=== PATIENT | female | born 1930 | race Caucasian/White ===

== ENCOUNTER 2018-04-27 01:23 | Emergency (ER) | payer MEDICARE ==
--- NOTE | 2018-04-27 01:38 | ERPHSYRPT ---
- History of Present Illness Time Seen by Provider: 04/27/18 01:35 Source: EMS, residential records Exam Limitations: clinical condition Physician History: 87 y/o white female residential resident with h/o dementia presents via ems after pt was seen in bed then when technicians turned back pt on the floor. this fall occurred at 2130. pt remained at residential facilitiy with neuro checks. pts last neuro check revealed pt to have altered mental status and have a brown substance in her mouth. pt not interacting with ems upon arrival. 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 occas moves right side but not always. pt is DNR status. clarification from residential rn at residential states pt only gives short answers intermittently to basic questions. Timing/Duration: today Severity: moderate Character of Deficits: other (gave rn name but only intermittently answers questions) Deficits: bed-ridden, cannot stand, cannot walk (chronic post cva) Baseline/Normal Cognition: poor alertness Current Cognition: poor alertness Baseline Gait: unable to walk Associated Symptoms: other (pt not interactive) Allergies/Adverse Reactions: No Known Drug Allergies Allergy (Unverified 04/27/18 02:01) Home Medications: Amlodipine Besylate 5 mg [Norvasc 5 mg] 5 mg PO DAILY 04/27/18 [History] Aspirin 81 gm Chew [Baby Aspirin 81 mg Chew] 81 mg PO DAILY 04/27/18 [ History] Atorvastatin Calcium [Lipitor 40Mg] 40 mg PO DAILY 04/27/18 [History] Digoxin 1 tab PO DAILY 04/27/18 [History] Ibuprofen 400 mg PO Q6H PRN 04/27/18 [History] Levothyroxine Sodium 100 mcg PO DAILY 04/27/18 [History] Lisinopril 10 mg [Zestril 10 MG] 10 mg PO BID 04/27/18 [History] Memantine HCl/Donepezil HCl [Namzaric 28 mg-10 mg Capsule] 1 cap PO HS 04/27/18 [History] Metoprolol Tartrate 50 mg [Lopressor 50 MG] 50 mg PO BID 04/27/18 [History ] Sertraline HCl 1 tab PO DAILY 04/27/18 [History] - Review of Systems Constitutional: No Symptoms, No Fever, No Chills Eyes: No Symptoms, No Eye Pain Ears, Nose, & Throat: No Symptoms, No Ear Pain Respiratory: No Symptoms, No Cough, No Dyspnea, No Stridor, No Wheezing Cardiac: No Symptoms, No Chest Pain, No Palpitations, No Syncope Abdominal/Gastrointestinal: No Symptoms, No Abdominal Pain, No Nausea, No Vomiting, No Diarrhea Genitourinary Symptoms: No Symptoms, No Dysuria, No Frequency, No Hematuria Musculoskeletal: No Symptoms, No Back Pain, No Neck Pain Skin: No Symptoms, No Cellulitis Neurological: No Symptoms Psychological: No Symptoms Endocrine: No Symptoms Hematologic/Lymphatic: No Symptoms Immunological/Allergic: No Symptoms All Other Systems: Reviewed and Negative - Past Medical History Pertinent Past Medical History: Yes Neurological History: Dementia, Stroke ENT History: No Pertinent History Cardiac History: No Pertinent History Respiratory History: No Pertinent History Endocrine Medical History: No Pertinent History Musculoskeletal History: No Pertinent History GI Medical History: No Pertinent History History: No Pertinent History Psycho-Social History: No Pertinent History Female Reproductive Disorders: No Pertinent History - Nursing Vital Signs Nursing Vital Signs: Initial Vital Signs Temperature 98.8 F 04/27/18 01:24 Pulse Rate 107 H 04/27/18 01:24 Blood Pressure 147/83 04/27/18 01:24 O2 Sat by Pulse Oximetry 98 04/27/18 01:24 - Darlyn Coma Scale Best Eye Response (Darlyn): (4) open spontaneously Best Verbal Response (Darlyn): (4) confused conversation Best Motor Response (Darlyn): (5) localizes to pain Darlyn Total: 13 - Physical Exam General Appearance: no apparent distress, lethargy Eye Exam: bilateral eye: normal inspection, PERRL, EOMI Ears, Nose, Throat Exam: dry mucous membranes Neck Exam: normal inspection, non-tender, supple Respiratory: normal breath sounds, lungs clear, airway intact, No chest tenderness, No respiratory distress, No accessory muscle use, No rhonchi, No wheezing, No stridor Cardiovascular: regular rate/rhythm, normal heart sounds, normal peripheral pulses Gastrointestinal: soft, normal bowel sounds, No tenderness, No guarding, No rebound Pelvic Exam: not done Rectal Exam: not done Back Exam: normal inspection, No CVA tenderness, No vertebral tenderness Extremity Exam: normal inspection, other (pt does not follow command) Mental Status: lethargy Skin Exam: normal color, warm, dry SpO2 Interpretation: normal SpO2: 98 Oxygen Delivery: Room Air - Course Nursing assessment & vital signs reviewed: Yes Ordered Tests: Active Orders 24 hr Category Date Time Status IV Insertion STAT Care 04/27/18 01:49 Active ANKLE (3 VIEWS) Stat Exams 04/27/18 03:10 Taken CHEST 1 VIEW (PORTABLE) Stat Exams 04/27/18 01:49 Taken HEAD WITHOUT CONTRAST [CT] Stat Exams 04/27/18 01:50 Taken CBC W DIFF Stat Lab 04/27/18 02:05 Completed CMP Stat Lab 04/27/18 02:05 Completed CULTURE,URINE Stat Lab 04/27/18 02:05 Received UA W/ MICROSCOPIC Stat Lab 04/27/18 02:05 Completed Medication Summary Discontinued Medications Generic Name Dose Route Start Last Admin Trade Name Freq PRN Reason Stop Dose Admin Sodium Chloride 500 mls @ 999 mls/hr 04/27/18 01:49 04/27/18 03:12 Sodium Chloride 0.9% 1000 Ml IV 04/27/18 02:19 Infused .Q31M STA Infusion Sodium Chloride Confirm 04/27/18 02:02 Sodium Chloride 0.9% 1000 Ml Administered 04/27/18 02:03 Dose 1,000 mls @ ud .ROUTE .STK-MED ONE Ceftriaxone Sodium/Dextrose 1 g in 50 mls @ 100 mls/hr 04/27/18 03:37 04:01 Rocephin 1 Gm-D5w 50 Ml Bag IV 04/27/18 04:06 Infused STAT STA Infusion Ceftriaxone Sodium/Dextrose Confirm 04/27/18 03:38 Rocephin 1 Gm-D5w 50 Ml Bag Administered 04/27/18 03:39 Dose 1 g in 50 mls @ ud IV .STK-MED ONE Lab/Rad Data: Laboratory Result Diagrams 04/27/18 02:05 04/27/18 02:05 Laboratory Results 04/27/18 04/27/18 04/27/18 Range/Units 02:05 02:05 02:05 WBC 16.7 H (4.0-10.5) K/mm3 RBC 5.46 H (4.1-5.4) M/mm3 Hgb 17.1 H (12.0-16.0) gm/dl Hct 52.7 H (35-47) % MCV 96.5 (78-100) fl MCH 31.3 (26-32) pg MCHC 32.4 (32-36) g/dl RDW 14.1 H (11.5-14.0) % Plt Count 104 L (150-450) K/mm3 MPV 10.8 H (6-9.5) fl Gran % 81.1 H (36.0-66.0) % Eos # (Auto) 0.09 (0-0.5) Absolute Lymphs (auto) 2.02 (1.0-4.6) Absolute Monos (auto) 1.03 (0.0-1.3) Lymphocytes % 12.1 L (24.0-44.0) % Monocytes % 6.2 (0.0-12.0) % Eosinophils % 0.5 (0.00-5.0) % Basophils % 0.1 (0.0-0.4) % Absolute Granulocytes 13.55 H (1.4-6.9) Basophils # 0.02 (0-0.4) Sodium 141 (137-145) mmol/L Potassium 4.4 (3.5-5.1) mmol/L Chloride 108 H (98-107) mmol/L Carbon Dioxide 24 (22-30) mmol/L Anion Gap 14.0 (5-15) MEQ/L BUN 17 (7-17) mg/dL Creatinine 0.60 (0.52-1.04) mg/dL Estimated GFR > 60.0 ML/MIN Glucose 128 H (74-106) mg/dL Calcium 9.7 (8.4-10.2) mg/dL Total Bilirubin 0.90 (0.2-1.3) mg/dL AST 69 H (14-36) U/L ALT 46 H (0-35) U/L Alkaline Phosphatase 113 (38-126) U/L Serum Total Protein 7.5 (6.3-8.2) g/dL Albumin 3.8 (3.5-5.0) g/dL Ur Collection Type UNK Urine Color YELLOW (YELLOW) Urine Appearance HAZY (CLEAR) Urine pH 5.0 (5-6) Ur Specific [place] 1.020 (1.005-1.025) Urine Protein NEGATIVE (Negative) Urine Ketones NEGATIVE (NEGATIVE) Urine Blood LARGE (0-5) Matthew/ul Urine Nitrite NEGATIVE (NEGATIVE) Urine Bilirubin NEGATIVE (NEGATIVE) Urine Urobilinogen NORMAL (0-1) mg/dL Ur Leukocyte Esterase 1+ (NEGATIVE) Urine Microscopic RBC 5-10 (0-2) /HPF Urine Microscopic WBC 15-25 (0-5) /HPF Ur Epithelial Cells RARE (FEW) /HPF Urine Bacteria MANY (NEGATIVE) /HPF Urine Culture Reflexed YES (NO) Urine Glucose NEGATIVE (NEGATIVE) mg/dL Specimen Received 04/27 0200 cxr-? right mid lobe/perihilar infiltrate vs chronic changes. pt rotated and no comparison cxr. xray right ankle-no acute fx or dislocation; chronic changes. [employer] states this is the correct ankle xray ct head-no intracranial abnormalities - Progress Progress: improved Progress Note: 04/27/18 04:03 pt not interactive. did not d/w pt. gagandeep mendoza did inform residential rn of dx and tx plan. - Departure Time of Disposition: 04:32 Departure Disposition: Home (residential) Clinical Impression: UTI (urinary tract infection), Pneumonia Condition: Stable Critical Care Time: No Referrals: ALDO WATERS [Primary Care Provider] - Additional Instructions: give levaquin iv antibiotics as prescribed. pt to be evaluated by physician. same other treatment plan.
[2018-04-27] MEDS ORDERED: Sodium Chloride 0.9% 1000 ML 1,000 ML ONE (02:02)
[2018-04-27 02:14] LABS: BASOPHIL % 0.1 % (0.0-0.4); Basophil (Absolute #) 0.02 (0-0.4); Eosinophil % 0.5 % (0.00-5.0); Eosinophil (Absolute #) 0.09 (0-0.5); Granulocyte Absolute (ANC) 13.55 (1.4-6.9); Granulocytes % 81.1 % (36.0-66.0); Hematocrit 52.7 % (35-47); Hemoglobin 17.1 gm/dl (12.0-16.0); Lymphocyte (Absolute #) 2.02 (1.0-4.6); Lymphocytes % 12.1 % (24.0-44.0); Mean Cell Volume 96.5 fl (78-100); Mean Corpuscular Hemoglobin 31.3 pg (26-32); Mean Corpuscular Hgb Concent. 32.4 g/dl (32-36); Mean Platelet Volume 10.8 fl (6-9.5); Monocyte (Absolute #) 1.03 (0.0-1.3); Monocytes % 6.2 % (0.0-12.0); Platelet Count 104 K/mm3 (150-450); Red Blood Count 5.46 M/mm3 (4.1-5.4); Red Cell Distribution Width 14.1 % (11.5-14.0); White Blood Count 16.7 K/mm3 (4.0-10.5)
[2018-04-27 02:33] LABS: Appearance HAZY (CLEAR); Bilirubin NEGATIVE (NEGATIVE); Blood LARGE Ery/ul (0-5); Glucose NEGATIVE (NEGATIVE); Ketones NEGATIVE (NEGATIVE); Leukocyte Esterase 1+ (NEGATIVE); Nitrite NEGATIVE (NEGATIVE); Protein,Urine Dip NEGATIVE (Negative); Urobilinogen NORMAL mg/dL (0-1)
[2018-04-27 02:34] LABS: ALBUMIN 3.8 g/dL (3.5-5.0); ALKALINE PHOSPHATASE 113 U/L (38-126); BLOOD UREA NITROGEN 17 mg/dL (7-17); Bacteria MANY /HPF (NEGATIVE); CHLORIDE 108 mmol/L (98-107); Calcium 9.7 mg/dL (8.4-10.2); Carbon Dioxide 24 mmol/L (22-30); Epithelial Cells RARE /HPF (FEW); Glucose 128 mg/dL (74-106); Potassium 4.4 mmol/L (3.5-5.1); SGOT/AST 69 U/L (14-36); SGPT/ALT 46 U/L (0-35); SODIUM 141 mmol/L (137-145); Total Protein 7.5 g/dL (6.3-8.2); WBC 15-25 /HPF (0-5)
[2018-04-27] MEDS ORDERED: ROCEPHIN 1 Gm-D5w 50 ml Bag** 1 G/50 ML IVPB IV ONE (03:38)
[2018-04-27] MEDS: ROCEPHIN 1 Gm-D5w 50 ml Bag** 1 G/50 ML IVPB IV STA (03:42)
[2018-04-27 04:03] VITALS: PULSE 97
[2018-04-27 05:03] VITALS: BP 135/90; O2SAT 100
--- NOTE | 2018-04-27 09:17 | XRAY ---
Indication: Pain following fall. Comparison: None 3 views of the right ankle limited due to suboptimal positioning. Ankle mortise grossly intact with medial soft tissue swelling, osteopenia, old distal 1st metatarsal fracture, small posterior heel spur, and degenerative changes of the ankle and midfoot/hindfoot. No other bony, articular, or soft tissue abnormalities.
--- NOTE | 2018-04-27 09:21 | XRAY ---
Indication: Altered mental status. Status post fall. Comparison: None Portable chest is rotated/side bent to the right. Lungs inflated and clear. Heart and mediastinal structures within normal limits. Bony thorax intact with osteopenia and moderate degenerative changes. 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 Impression: Nonacute chest with chronic features.
--- NOTE | 2018-04-27 09:27 | XRAY ---
Indication: Altered mental status. Patient found on floor. Status post CVA. Multiple contiguous axial images obtained through the head without contrast. Comparison: None Age-appropriate global atrophy, moderate periventricular degenerative microvascular ischemia, and moderate-sized old right parietal infarct. There is cortical/subcortical hypoattenuation in the right anterior parietal lobe favoring subacute to chronic infarct. No acute intracranial hemorrhage, hydrocephalus, or mass effect. Moderate right frontal scalp hematoma. Bony calvarium intact with moderate degenerative changes of the atlantoaxial articulation. Moderate mucosal thickening of both ethmoid and both maxillary sinuses with fluid leveling in both maxillary and both sphenoid sinuses. Mastoid air cells are clear. Impression: 1. Nonacute senile brain with remote right cerebral infarcts as detailed. 2. Right frontal scalp hematoma. No underlying fracture. 3. Incidental pansinusitis. Comment: Preliminary interpretation was made by [facility]. No critical discrepancy. CTDI 62.53
== END 2018-04-27 05:27 ==
LOC: ED 01:23
DX: N39.0 Urinary tract infection, site not specified (principal); J18.9 Pneumonia, unspecified organism; I69.354 Hemiplegia and hemiparesis following cerebral infarction affecting left non-dominant side; Z86.73 Personal history of transient ischemic attack (TIA), and cerebral infarction without residual deficits; Z79.82 Long term (current) use of aspirin; Z79.899 Other long term (current) drug therapy; W06.XXXA Fall from bed, initial encounter; Y92.129 Unspecified place in nursing home as the place of occurrence of the external cause
CPT/HCPCS: 36000; 36415; 70450; 71045; 73610; 80053; 81000; 85025; 87086; 96360; 96365; 99284; J0696